=== PATIENT | male | born 1955 | race Two or more races ===

== ENCOUNTER 2024-06-19 09:11 | Outpatient (REF) | payer MEDICAID, SELFPAY ==
--- OUTSIDE RECORDS SUMMARY | 2024-06-19 10:09 | XMS_ITS | Encounter Summary ---
Author Organization [employer] Address [address] [facility] 7[address] [place] [address] Care Team Providers Care Childcare Center Director Name Role Phone Marjorie Key NP Primary Care Provider [phone] Reason for Visit * Reason Comments new patient Encounter Details Date Type Department Care Team ([facility] st Contact Info) Description 06/14/2024 2:00 PM EDT Office Visit [facility] [address] [place] [address] Marjorie Key NP [address] [place] [address] Hypertension, unspecified type (Primary Dx); Overweight (BMI 25.0-29.9); History of Helicobacter pylori infection; Encounter for health-related screening; History of colon polyps; Prostate cancer (CMS/HCC); Encounter for immunization Social History Tobacco Use Types Packs/Day Years Used Date Smoking Tobacco: Never Passive Smoke Exposure: Never Smokeless Tobacco: Never Tobacco Cessation:Counseling Given: Not Answered Alcohol Use Standard Drinks/Week Comments Never 0 (1 standard drink = 0.6 oz pur e alcohol) Alcohol Answer Date Recorded How often do you have a drink containing alcohol ? 0 06/14/2024 How many drinks containing a lcohol do you have on a typical day when you are drinking? 0 06/14/2024 How often do you have six or more drinks on one occasion? 0 06/14/2024 Depression Answer Date Recorded Patient Health Questionnaire-9 Score 10 06/14/2024 Patient Health Questionnaire-9 Score 10 06/14/2024 Last PHQ-9: Questionnaire Data Not on file 0 06/14/2024 Housing Stability Answer Date Recorded What is your housing situation today? I do not have housing (Staying with others, in a hotel, in a residential, living outside on the street, on a beach, in a car, or in a park 06/14/[address] you li ve. Do you have problems with any of the following? None of the above 06/14/2024 Food Insecurity Answer Date Recorded Within the past 12 months, y ou worried that your food would run out before you got money to buy more: Never True 2024 Within the past 12 months,th e food you bought just didn't last and you didn't have enough money to get more: Sometimes True 06/14/2024 Transportation Answer Date Recorded In the past 12 months, has l ack of transportation kept you from medical appts, meetings, work or from getting things needed for daily living? Yes, it has kept me from medical appointments or getting medications. 06/14/2024 Utilities Answer Date Recorded In the past 12 months, has t he electric, gas, oil or water company threatened to shut off services in your home? No 06/14/2024 Depression Answer Date Recorded Patient Health Questionnaire-2 Score 3 06/14/2024 Internet Access Answer Date Recorded Internet Access Q1 No 06/14/2024 Internet Access Q2 My internet/Wi-Fi ac cess is not consistent or reliable 06/14/2024 Sex and Gender Information Value Date Recorded Sex Assigned at Male 06/12/2024 3:44 PM EDT Legal Sex Male 3:43 PM EDT Gender Identity Male 06/13/2024 12:25 PM EDT Sexual Orientation Straight 06/13/2024 12 :25 PM EDT documented as of this encounter Last Filed Vital Signs Vital Sign Reading Time Taken Comments Blood Pressure 122/79 06/14/2024 2:12 PM EDT Pulse 75 06/14/2024 2:12 PM EDT Temperature 36.6 ??C (97.9 ??F) 06/14/2024 2:12 PM ED T Respiratory Rate 18 06/14/2024 2:12 PM EDT Oxygen Saturation 98% 06/14/2024 2:12 PM EDT Inhaled Oxygen Concentration - - Weight 97.1 kg (214 lb) 06/14/2024 2:12 PM EDT Height 180.3 cm (5' 11 ) 06/14/2024 2:12 PM EDT Body Mass Index 29.85 06/14/2024 2:12 PM EDT documented in this encounter Plan of Treatment Upcoming Encounters Date Type Department Care Team (Late st Contact Info) Description 07/17/2024 1:30 PM EDT Office Visit [facility] [address] [place] [address] Marjorie Key NP [address] [place], [place] [id number] Scheduled Orders Name Type Priority Associated Diagnoses Orde r Schedule Lipid Panel, Standard Lab Routine Overweight (BMI 25.0-29.9) Expected: 06/14/2024 (Approximate), Expires: 06/14/2025 Comprehensive Metabolic Panel Lab Routine Hypertension, unspecified type Expected: 06/14/2024 (Approximate), Expires: 06/14/2025 Hemoglobin A1c Lab Routine Overweight (BMI 25.0-29.9) Expected: 06/14/2024 (Approximate), Expires: 06/14/2025 Albumin, Random Urine W/Creatinine Lab Routine Hypertension, unspecified type Expected: 06/14/2024 (Approximate), Expires: 06/14/2025 Hepatitis C Antibody with Reflex to HCV, RNA, Quantitative, Real-Time PCR Lab Routine Encounter for health-related screening Expected: 06/14/2024 (Approximate), Expires: 06/14/2025 Hepatitis B Surface Antibody, Qualitative Lab Routine Encounter for health-related screening Expected: 06/14/2024 (Approximate), Expires: 06/14/2025 Hepatitis B Core Antibody, Total Lab Routine Encounter for health-related screening Expected: 06/14/2024 (Approximate), Expires: 06/14/2025 Hepatitis B surface antigen, EIA Lab Routine Encounter for health-related screening Expected: 06/14/2024 (Approximate), Expires: 06/14/2025 HIV-1/2 Antigen and Antibodies, Fourth Generation, with Reflexes Lab Routine Encounter for health-related screening Expected: 06/14/2024 (Approximate), Expires: 06/14/2025 Helicobacter pylori??Antigen, EIA, Stool Lab Routine History of Helicobacter pylori infection Expected: 06/14/2024, Expires: 06/14/2025 documented as of this encounter Visit Diagnoses Diagnosis Hypertension, unspecified type- Primary Overweight (BMI 25.0-29.9) Overweight History of Helicobacter pylori infection Encounter for health-related screening History of colon polyps Prostate cancer (CMS/HCC) Malignant neoplasm of prostate Encounter for immunization documented in this encounter Additional Health Concerns Assessment Noted Time PHQ-9 Depression Total Score: 10 025 3:02 PM EDT documented as of this encounter Care Teams Childcare Center Director Relationship Specialty Start Date End Date Marjorie Key NP [address] [place] [id number] PCP - General Family Medicine 06/14/24 documented as of this encounter
--- OUTSIDE RECORDS SUMMARY | 2024-06-19 10:09 | XMS_ITS | Encounter Summary ---
Author Organization [employer] Address [address] [facility] 7 [place] [address] Care Team Providers Care Burner Shaft Name Role Phone Marjorie Key NP Primary Care Provider [phone] Reason for Visit * Reason Onset Date Comments NEW PATIENT Request 06/12/2024 Encounter Details Date Type Department Care Team ([facility] st Contact Info) Description 06/12/2024 Telephone [facility] [address] [place] [address] Trey Schmitz MD [address] [place] [address] NEW PATIENT Request Social History Tobacco Use Types Packs/Day Years Used Date Smoking Tobacco: Never Assessed Alcohol Answer Date Recorded How often do [...] with others, in a hotel, in a senior living, living outside on the street, on a [...] PM EDT documented as of this encounter Miscellaneous Notes * Telephone Encounter - Isak Rodriguez - 06/12/2024 3:47 PM EDT TC from caller requesting NEW PATIENT visit . DX : HTN Cancer Anxiety Medical Concern: Vision issues Insurance name : [place] / Medicaid Pt states also has aetna but hasn't received card yet Location : [facility] Demographic information updated documented in this encounter Plan of Treatment Upcoming Encounters Date Type Department Care Team (Late st Contact Info) Description 07/17/2024 1:30 PM EDT Office Visit [facility] [address] [place] [address] Marjorie Key NP [address] [place] [address] documented as of this encounter Visit Diagnoses Not on filedocumented in this encounter Care Teams Burner Shaft Relationship Specialty Start Date End Date Marjorie Key NP [address] [place] [address] PCP - General Family Medicine 06/14/24 documented as of this encounter
--- OUTSIDE RECORDS SUMMARY | 2024-06-19 10:09 | XMS_ITS | Encounter Summary ---
Author Organization [employer] Address [address] [facility] [address] [place] [address] Care Team Providers Care Low Altitude Air Defense Gunner Name Role Phone Marjorie Key NP Primary Care Provider [phone] Encounter Details Date Type Department Care Team (Latest Contact Info) Description 06/14/2024 Travel Social History Tobacco Use Types Packs/Day Years Used Date Smoking Tobacco: Never Passive Smoke Exposure: Never Smokeless Tobacco: Never Alcohol Use Standard Drinks/Week Comments Never 0 [...] with others, in a hotel, in a halfway, living outside on the street, on a [...] PM EDT documented as of this encounter Plan of Treatment Upcoming Encounters Date Type Department Care Team (Late st Contact Info) Description 07/17/2024 1:30 PM EDT Office Visit [facility] [address] [place] [address] Marjorie Key NP [address] [place] [address] documented as of this encounter Visit Diagnoses Not on filedocumented in this encounter Additional Health Concerns Assessment Noted Time PHQ-9 Depression Total Score: 10 025 3:02 PM EDT documented as of this encounter Care Teams Low Altitude Air Defense Gunner Relationship Specialty Start Date End Date Marjorie Key NP [address] [place] [address] PCP - General Family Medicine 06/14/24 documented as of this encounter
--- OUTSIDE RECORDS SUMMARY | 2024-06-19 10:09 | XMS_ITS | Clinical Summary ---
Author Organization [employer] Address [address] [facility] 7t [place] [address] Care Team Providers Care Manager Culinary Name Role Phone Marjorie Key NP Primary Care Provider [phone] Allergies No known active allergies Medications fluticasone-elizabeth meterol (Advair) 115-21 MCG/ACT inhaler Inhale 2 puffs in the morning and at bedtime. Rinse mouth with water after use to reduce aftertaste and incidence of candidiasis. Do not swallow. Active albuterol 108 (90 Base) MCG/ACT inhaler Inhale. 1 to 2 puffs by mouth every 4 to 6 hours as needed Active azelastine (Astelin) 0.1 % nasal spray Administer 1 spray into each nostril 2 times daily. Use in each nostril as directed Active tamsulosin (Flomax) 0.4 MG 24 hr capsule Take 1 capsule by mouth Once per day. Active sertraline (Zoloft) 25 MG tablet Take 2 tablets by mouth Once per day. Active atorvastatin (Lipitor) 40 MG tablet Take 1 tablet by mouth Once per day. Active gabapentin (Neurontin) 400 MG capsule Take 1 capsule by mouth 2 times daily. Active losartan (Cozaar) 100 MG tablet Take 1 tablet by mouth Once per day. Active traZODone (Desyrel) 50 MG tablet Take 1 tablet by mouth at bedtime. Active montelukast (Singulair) 10 MG tablet Take 1 tablet by mouth Once per day. Active aspirin 81 MG EC tablet Take 1 tablet by mouth Once per day. Active Encounters Date Type Department Care Team Description 06/14/2024 2:00 PM EDT Office Visit [facility] [address] [place] [id number] Marjorie Key NP Hypertension, unspecified type (Primary Dx); Overweight (BMI 25.0-29.9); History of Helicobacter pylori infection; Encounter for health-related screening; History of colon polyps; Prostate cancer (CMS/HCC); Encounter for immunization 06/14/2024 Travel 06/13/2024 Telephone [facility] [address] [place] [address] Pierce Zhu [place] chartprep 06/12/2024 Telephone [facility] [address] [place] [address] Trey Schmitz MD NEW PATIENT Request from Last 3 Months Immunizations Name Administration Dates Next Due Tdap 06/14/2024 Family History Medical History Relation Name Comments Cancer Father Cancer Sister Relation Name Status Comments Father Mother Alive Sister Social History Tobacco Use Types Packs/Day Years [...] with others, in a hotel, in a longterm, living outside on the street, on a [...] Orientation Straight 06/13/2024 12 :25 PM EDT Last Filed Vital Signs Vital Sign Reading [...] Mass Index 29.85 06/14/2024 2:12 PM EDT Plan of Treatment Upcoming Encounters Date Type Department Care Team (Late st Contact Info) Description 07/17/2024 1:30 PM EDT Office Visit [facility] [address] [place] [address] Marjorie Key NP [address] [place], [place] [phone] Health Maintenance Due Date Last Done Comments CT Colonography 1955 Colonoscopy 1955 Colorectal Cancer Screening 1955 FIT DNA/Cologuard 1955 FIT 1955 FOBT 1955 Lipid Panel 1955 Sigmoidoscopy 1955 Hepatitis C Screening 1973 Pneumococcal Vaccine: 50+ Years (1 of 1 - PCV) 2005 Zoster Vaccines (1 of 2) 2005 COVID-19 Vaccine (1 - 2023-2 5 season) 2023 Influenza Vaccine (#1) 2023 Depression Monitoring 12/14/2024 06/14/2024 , 06/14/2024 Alcohol/Substance Use Screening 06/14/2025 06/14/2024 Depression Screening 06/14/2025 06/14/2024, 06/14/2024 SDOH Screening 06/14/2025 06/14/2024 Tobacco Screening 06/14/2025 06/14/2024 RSV Patients and Patients Aged 60 years or older (1 - 1-dose 75+ series) 2030 DTaP/Tdap/Td Vaccines (2 - T d or Tdap) 06/14/2034 06/14/2024 HIB Vaccines Aged Out No longer eligi ble based on patient's age to complete this topic HPV Vaccines Aged Out No longer eligi ble based on patient's age to complete this topic Hepatitis A Vaccines Aged Out No long er eligible based on patient's age to complete this topic Hepatitis B Vaccines Aged Out No long er eligible based on patient's age to complete this topic IPV Vaccines Aged Out No longer eligi ble based on patient's age to complete this topic Meningococcal Vaccine Aged Out No kay jailyn eligible based on patient's age to complete this topic RSV under 20 months Aged Out No longe r eligible based on patient's age to complete this topic Rotavirus Vaccines Aged Out No longer eligible based on patient's age to complete this topic Insurance [facility] Member Subscriber Plan / Payer (Ef fective 2024-Present) Name:Coy Hernandez Relation to Subscriber:Self Name:Coy Hernandez Payer ID:Not on file Group ID:Not on file Type:Medicaid Address: [facility] [id number] [place] [id number] [employer] Care Teams Manager Culinary Relationship Specialty Start Date End Date Marjorie Key NP [address] [place] [id number] PCP - General Family Medicine 06/14/24
[2024-06-19 11:31] LABS: Estimated Average Glucose 114 mg/dL; Hemoglobin A1C 127.7764 umol/L; Hemoglobin A1c % 5.6 % (<6.0); Total Hemoglobin (HGBA1C) 3345.9919 umol/L
[2024-06-19 11:48] LABS: Alanine Aminotransferase 24 U/L (0-40); Albumin Level 3.7 g/dL (3.5-5.0); Alkaline Phosphatase 40 U/L (39-117); Anion Gap 9 (12-20); Aspartate Amino Transferase 29 U/L (5-37); Bilirubin Total 0.5 mg/dL (0.0-1.0); Blood Urea Nitrogen 17 mg/dL (9-16); Carbon Dioxide 26 mmol/L (22-29); Chloride 107 mmol/L (96-108); Cholesterol 136 mg/dL (<200); Estimated Glomerular Filt Rate > 60; Glucose Random 93 mg/dL (60-115); HDL Cholesterol 47 mg/dL (>40); LDL Cholesterol Calculated 73 mg/dL (<100); Potassium 4.2 mmol/L (3.3-5.1); Sodium 138 mmol/L (135-145); Total Protein 6.7 g/dL (6.5-8.0); Triglycerides 80 mg/dL (<150)
[2024-06-19 12:03] LABS: HBS Num1 3.12 mIU/mL (0-7.99); Hepatitis B Core Antibody Nonreactive (Nonreactive); ~HepC Num1 0.13 S/CO (0.00-0.79); ~Hepatitis B Surface Antibody NONREACTIVE (Nonreactive)
[2024-06-19 12:04] LABS: HBsAGNum1 0.35 S/CO (0.00-0.99); HIV AB/AG Nonreactive (Nonreactive); HIV Num 1 0.07 S/CO (0.00-0.99); Hepatitis B Surface Antigen Negative (Negative); ~Hepatitis C Antibody Nonreactive (Nonreactive)
[2024-06-19 12:18] LABS: Creatinine Urine 104.67 mg/dL; Microalbum/Creatinine Ratio Ur 6.6 ug/mg cr (<30)
== END 2024-06-19 09:12 | disposition home or self-care (01) ==
LOC: HO.HHCL 09:11
PROVIDERS: Visit Provider Nurse Practitioner
DX: E66.3 Overweight (principal); I10 Essential (primary) hypertension; Z13.9 Encounter for screening, unspecified
CPT/HCPCS: 36415; 80053; 80061; 82043; 82570; 83036; 86704; 86706; 86803; 87340; 87389

== ENCOUNTER 2024-06-26 | Outpatient (REF) | payer MEDICAID, SELFPAY ==
--- OUTSIDE RECORDS SUMMARY | 2024-06-27 16:50 | XMS_ITS | Clinical Summary ---
Author Organization [employer] Address [address] [facility] [address] [place] [address] Care Team Providers Care Air Saw Operator Name Role Phone Marjorie Key NP Primary Care Provider [phone] Allergies No known active allergies Medications fluticasone-elizabeth [...] Description 06/14/2024 2:00 PM EDT Office Visit [facility] MED[facility]INE [address] [place] [phone] Marjorie Key NP Hypertension, unspecified type (Primary Dx); Overweight (BMI 25.0-29.9); History of Helicobacter pylori infection; Encounter for health-related screening; History of colon polyps; Prostate cancer (CMS/HCC); Encounter for immunization 06/14/2024 Travel 06/13/2024 Telephone [facility] MED[facility] [address] [place] [address] Pierce Zhu MA chartprep 06/12/2024 Telephone [facility] [address] [place] [address] Trey Schmitz MD NEW PATIENT Request from [...] with others, in a hotel, in a prison, living outside on the street, on a [...] Description 07/17/2024 1:30 PM EDT Office Visit [facility] [address] [place] [address] Marjorie Key NP [address] [place], [place] [phone] Health Maintenance Due Date Last Done Comments CT Colonography 1955 Colonoscopy 1955 Colorectal Cancer Screening 1955 FIT DNA/Cologuard 1955 FIT 1955 FOBT 1955 Sigmoidoscopy 1955 Pneumococcal Vaccine: 50+ Years (1 of 1 - PCV) 2005 Zoster Vaccines (1 of 2) 2005 COVID-19 Vaccine (1 - 2023-2 5 season) 2023 Influenza Vaccine (#1) 2023 Alcohol/Substance Use Screening 06/14/2025 06/14/2024 Depression Screening 06/14/2025 06/14/2024, 06/14/2024 SDOH Screening 06/14/2025 06/14/2024 Tobacco Screening 06/14/2025 06/14/2024 Lipid Panel 06/19/2029 06/19/2024 RSV Patients and Patients Aged 60 years or older (1 - 1-dose 75+ series) 2030 DTaP/Tdap/Td Vaccines (2 - T d or Tdap) 06/14/2034 06/14/2024 Hepatitis C Screening Completed 06/19/2024 HIB Vaccines Aged Out No longer eligi [...] on patient's age to complete this topic Procedures Procedure Name Priority Date/Time Associated Diagnosis Comments HIV 1/2 ANTIGEN/ANTIBODY, FOURTH GENERATION W/RFL Routine 06/19/2024 9:15 AM EDT Encounter for health-related screening HEPATITIS B SURFACE ANTIGEN, EIA Routine 06/19/2024 9:15 AM EDT Encounter for health-related screening HEPATITIS B CORE AB TOTAL Routine 06/19/2024 9:15 AM EDT Encounter for health-related screening HEPATITIS B SURFACE ANTIBODY, QUALITATIVE Routine 06/19/2024 9:15 AM EDT Encounter for health-related screening HEPATITIS C AB W/REFL TO HCV RNA, QN, PCR Routine 06/19/2024 9:15 AM EDT Encounter for health-related screening ALBUMIN, RANDOM URINE W/CREATININE Routine 06/19/2024 9:15 AM EDT Hypertension, unspecified type HEMOGLOBIN A1C Routine 06/19/2024 9:15 AM EDT Overweight (BMI 25.0-29.9) COMPREHENSIVE METABOLIC PANEL Routine 06/19/2024 9:15 AM EDT Hypertension, unspecified type LIPID PANEL, STANDARD Routine 06/19/2024 9:15 AM EDT Overweight (BMI 25.0-29.9) from Last 3 Months Results * Albumin, Random Urine W/Creatinine (06/19/2024 9:15 AM EDT) Creatinine, Urine 104.67 mg/dL [facility] Microalbumin Urine 7.0 mg/L [facility] Microalbum Creatinine Ratio Ur 6.6 <30 ug/mg cr [facility] Comment:Albumin/Creatinine R atio Reference Ranges: Normal: < 30 ug/mg creatinine Microalbuminuria: 30 - 300 ug/mg creatinineClinical Albuminuria: > 300 ug/mg creatinine Urine (Urine, Random) 06/19/2024 9:15 AM EDT 06/19/2024 11:34 AM EDT us Marjorie Key NP LAB URINE ORDERABLES Final Resu lt [facility] [address] [place] [phone] * Hepatitis C Antibody with Reflex to HCV, RNA, Quantitative, Real-Time PCR (06/19/2024 9:15 AM EDT) Hepatitis C Antibody Nonreactive Nonreactive [facility] Comment:Antibodies to HCV no t detected; does not exclude early acuteHCV infection. Blood Venous blood specimen / Unknown 06/19/2024 9:15 AM EDT 06/19/2024 11:13 AM EDT [facility] DRAFTING LAYOUT WORKER LAB BLOOD ORDERABLES Final Resu lt Performing Organization Address [facility]/ZIP Co de Phone Number [facility] [address] [place] [phone] * Hepatitis B surface antigen, EIA (06/19/2024 9:15 AM EDT) Hepatitis B Surface Ag Negative Negative [facility] Blood Venous blood specimen / Unknown 06/19/2024 9:15 AM EDT 06/19/2024 11:13 AM EDT Marjorie Clemente DRAFTING LAYOUT WORKER LAB BLOOD ORDERABLES Final Resu lt Performing Organization Address [facility] Co de Phone Number [facility] [address] [place] [phone] * Hepatitis B Core Antibody, Total (06/19/2024 9:15 AM EDT) Hepatitis B Core Antibody Nonreactive Nonreactive [facility] Blood Venous blood specimen / Unknown 06/19/2024 9:15 AM EDT 06/19/2024 11:13 AM EDT Marjorie Bryn DRAFTING LAYOUT WORKER LAB BLOOD ORDERABLES Final Resu lt Performing Organization Address [facility]/ZIP Co de Phone Number [facility] [address] [place] [phone] * HIV-1/2 Antigen and Antibodies, Fourth Generation, with Reflexes (06/19/2024 9:15 AM EDT) Pathologist [facility] HIV AB/AG Nonreactive Nonreactive [facility] Comment:HIV-1 p24 Ag and/or HIV-1/HIV-2 Ab not detected.A test result that is nonreactive does not exclude thepossibility of exposure to or infection with HIV-1 and/orHIV-2. Nonreactive results in this assay for individualswith prior exposure to HIV-1 and/or HIV-2 may be due toantigen and antibody levels that are below the limit ofdetection of this assay.The [employer] HIV Ag/Ab Combo assay result andsupplemental assay results should be interpreted inconjunction with the patient's clinical presentation,history and other laboratory results. If the results areinconsistent with clinical evidence, additional testing issuggested to confirm the result. Blood Venous blood specimen / Unknown 06/19/2024 9:15 AM EDT 06/19/2024 11:13 AM EDT [facility] LAB BLOOD ORDERABLES Final Resu lt Performing Organization Address City/[facility]/ZIP Co de Phone Number [facility] [address] [place] [phone] * Hepatitis B Surface Antibody, Qualitative (06/19/2024 9:15 AM EDT) Pathologist [facility] ~Hepatitis B Surface Antibody NONREACTIVE Nonreactive [facility] Comment:Nonreactive: < 8.00 mIU/mL Blood Venous blood specimen / Unknown 06/19/2024 9:15 AM EDT 06/19/2024 11:13 AM EDT [facility] LAB BLOOD ORDERABLES Final Resu lt Performing Organization Address City/[facility]/ZIP Co de Phone Number [facility] [address] [place] [phone] * Hemoglobin A1c (06/19/2024 9:15 AM EDT) Hemoglobin A1c 5.6 <6.0 % [facility] Comment:Hemoglobin A1C Refer ence Range Adults: 4.8 - 6.0 % Non diabetic: < 6.0 % Goal: < 7.0 %Additional Action Suggested: > 8.0 %Note: Hemoglobin A1c results are invalid for patients with abnormal amounts of HbF. Blood transfusions may impact the HbA1c concentration in the patient sample. Estimated Average Glucose 114 mg/dL [facility] Comment:eAG = Estimated ave rage glucose which is %A1C expressed asaverage glucose, using the formula of the O2Q-GlfbpknBkikjov Glucose study (ADAG), Diabetes Care, Vol.31,#8,2007 Blood Venous blood specimen / Unknown 06/19/2024 9:15 AM EDT 06/19/2024 11:16 AM EDT Marjorie Key DRAFTING LAYOUT WORKER LAB BLOOD ORDERABLES Final Resu lt [facility] [address] [place] [phone] * Lipid Panel, Standard (06/19/2024 9:15 AM EDT) Triglycerides 80 <150 mg/dL [facility] Comment:Desirable Triglyceri de: less than 150 mg/dLBorderline High Triglyceride 150-199 mg/dLHigh Triglyceride: 200-499 mg/dLVery High Triglyceride: greater than or equal to 5OO mg/dL Cholesterol 136 <200 mg/dL [facility] Comment:Desirable Cholestero l: less than 200 mg/dLBorderline High Cholesterol: 200-239 mg/dLHigh Cholesterol: greater than 239 mg/dL LDL Cholesterol Calculated 73 <100 mg/dL [facility] Comment:Desirable LDL: less than 100 mg/dLNear Optimal/Above Optimal LDL: 110- 129 mg/dLBorderline High LDL: 130-159 mg/dLHigh LDL: 160-189 mg/dLVery High LDL: greater than or equal to 190 mg/dL HDL Cholesterol 47 >40 mg/dL [facility] Comment:Desirable HDL: great er than 40 mg/dL Note: This HDL assay may give artificially low results in patients with liver disease. Blood Venous blood specimen / Unknown 06/19/2024 9:15 AM EDT 06/19/2024 11:13 AM EDT us Marjorie Brynwillam DRAFTING LAYOUT WORKER LAB BLOOD ORDERABLES Final Resu lt [facility] [address] [place] [phone] * (ABNORMAL) Comprehensive Metabolic Panel (06/19/2024 9:15 AM EDT) Sodium 138 135 - 145 mmol/L [facility] Potassium 4.2 3.3 - 5.1 mmol/L [facility] Chloride 107 96 - 108 mmol/L [facility] Carbon Dioxide 26 22 - 29 mmol/L [facility] Anion Gap 9(L) 12 - 20 [facility] Urea Nitrogen (BUN) 17(H) 9 - 16 mg/dL [facility] Creatinine, Serum 0.80 0.5 - 1.4 mg/dL [facility] Estimated Glomerular Filt Rate >60 [facility] Comment:Chronic Kidney Disea se: Estimated GFR < 60 mL/min/[id number] Kidney Disease: Estimated GFR < 15 mL/min/1.73m2 Glucose 93 60 - 115 mg/dL [facility] Calcium 9.0 8.4 - 10.2 mg/dL [facility] Bilirubin, Total 0.5 0.0 - 1.0 mg/dL [facility] Aspartate Amino Transferase 29 5 - 37 U/L [facility] Alanine Aminotransferase 24 0 - 40 U/L [facility] Total Protein 6.7 6.5 - 8.0 g/dL [facility] Albumin Level 3.7 3.5 - 5.0 g/dL [facility] Alkaline Phosphatase 40 39 - 117 U/L [facility] Blood Venous blood specimen / Unknown 06/19/2024 9:15 AM EDT 06/19/2024 11:13 AM EDT Marjorie Key DRAFTING LAYOUT WORKER LAB BLOOD ORDERABLES Final Resu lt [facility] [address] [place] [phone] from Last 3 Months Insurance [facility] Care Teams Air Saw Operator Relationship Specialty Start Date End Date Marjorie Key NP [address] [place] [phone] PCP - General Family Medicine 06/14/24
--- OUTSIDE RECORDS SUMMARY | 2024-06-27 16:50 | XMS_ITS | Encounter Summary ---
Author Organization [employer] Address [address] [facility] 7 [place] [address] Care Team Providers Care Computer Forensics Investigator Name Role Phone Marjorie Key NP Primary Care Provider [phone] Reason for Visit * Reason Onset Date Comments NEW PATIENT Request 06/12/2024 Encounter Details Date Type Department Care Team ([facility] st Contact Info) Description 06/12/2024 Telephone [facility] MEDICINE [address] [place] [address] Trey Schmitz MD [address] [place] [address] NEW PATIENT Request Social History Tobacco Use [...] with others, in a hotel, in a correction, living outside on the street, on a [...] but hasn't received card yet Location : [facility] Demographic information updated documented in this encounter Plan of Treatment Upcoming Encounters Date Type Department Care Team (Late st Contact Info) Description 07/17/2024 1:30 PM EDT Office Visit [facility] MEDICINE [address] [place] [address] Marjorie Key NP [address] [place] [address] documented as of this encounter Visit Diagnoses Not on filedocumented in this encounter Care Teams Computer Forensics Investigator Relationship Specialty Start Date End Date Marjorie Key NP [address] [place] [address] PCP - General Family Medicine 06/14/24 documented as of this encounter
== END 2024-06-26 00:01 | disposition home or self-care (01) ==
LOC: HO.HHCLNP
PROVIDERS: Visit Provider Nurse Practitioner
DX: Z86.19 Personal history of other infectious and parasitic diseases (principal)
CPT/HCPCS: 87338

== ENCOUNTER 2024-10-25 14:52 | Outpatient (AMB) | payer MEDICARE, SELFPAY ==
--- NOTE | 2024-10-25 15:40 | A.OFFVIS_ITS ---
Intake Visit Reasons: Prostate cancer screening Intake Note: New Patient is present for Sales Associate screening Urology Rx:Tamsulosin Blood Thinners:none Imaging completed: none Rn Embedded Required: No Accompanied by: Self / Same As Patient HPI Comments Details: Coy is a [place]ian-speaking male. He is a patient of [facility] Dr. Key. He is seen for the following urologic conditions - prostate cancer [place]ian translation provided by [facility] sales Per the patient he was diagnosed with prostate cancer in [place] 4 years ago Therapy was injections Sounds consistent with GnRH administration Plan check PSA now and three-month Patient informed he should get copy of previous urology records from [place]. It does not matter if they are in [place]ian. This would provide continuity of care. Review of Systems Const Denies chills and Denies fever(s) Card Reports no additional complaints and Denies syncope Resp Denies cough GI Denies abdominal pain and Denies heartburn Reports as per HPI and Denies change in libido Neuro Denies syncope Psych Denies change in libido Endo Denies change in libido Physical Exam Const General: cooperative, healthy appearing, comfortable and no acute distress Orientation/consciousness: patient oriented x3 HEENT Face and sinus: Yes normal facial exam Mouth: moist mucous membranes Neck Neck: Yes normal visual inspection, Yes full ROM and Yes trachea midline Chest Chest palpation & inspection: normal inspection of the chest Resp Effort & Inspection: normal respiratory effort, able to speak in complete sentences and no respiratory distress GI Inspection: Yes normal to inspection Back/Spine/Pelvis Cervical Spine: normal cervical lordosis Thoracic/Lumbar Spine: thoracic and lumbar spine normal to inspection Skin General skin exam: no rashes or lesions noted Neuro General: patient oriented x3, gait normal, tone normal and moves all extremities Extrem General: Yes normal to inspection and Yes capillary refill normal Results AMB Urinalysis, Automated UA Leukoctes 0 Sarah/uL Last Edit by KIERAN Ferrari on 10/25/24 15:55 UA Nitrite Negative Last Edit by KIERAN Ferrari on 10/25/24 15:55 UA Urobilinogen 0.2 mg/dL Last Edit by KIERAN Ferrari on 10/25/24 15:5 5 UA Protein 0 mg/dL Last Edit by KIERAN Ferrari on 10/25/24 15:55 UA pH 6.0 Last Edit by KIERAN Ferrari on 10/25/24 15:55 UA Blood 0 Timothy/uL Last Edit by KIERAN Ferrari on 10/25/24 15:55 UA Specific Cornell 1.015 Last Edit by KIERAN Ferrari on 10/25/24 15: 55 UA Ketone Negative Last Edit by KIERAN Ferrari on 10/25/24 15:55 UA Bilirubin 0 mg/dL Last Edit by KIERAN Ferrari on 10/25/24 15:55 UA Glucose 0 mg/dL Last Edit by KIERAN Ferrari on 10/25/24 15:55 Results Reviewed Results Reviewed: Laboratory Last Values Urine pH (Auto) 6.0 10/25/24 15:54 Specific Cornell (Auto) 1.015 10/25/24 15:54 Urine Protein (Auto) 0 mg/dL 10/25/24 15:54 Glucose (UA)(Auto) 0 mg/dL 10/25/24 15:54 Urine Ketones (Auto) Negative 10/25/24 15:54 Urine Blood (Auto) 0 Timothy/uL 10/25/24 15:54 Urine Nitrite (Auto) Negative 10/25/24 15:54 Urine Bilirubin (Auto) 0 mg/dL 10/25/24 15:54 Urine Urobilinogen (Auto) 0.2 mg/dL 10/25/24 15:54 Leukocyte Esterase (Auto) 0 Sarah/uL 10/25/24 15:54 Assessment & Plan Assessment & Plan (1) Hormone sensitive prostate cancer: Code(s): C61 - Malignant neoplasm of prostate; Z19.1 - Hormone sensitive malignancy status Category: Medical Plan PSA now Repeat in three-month Patient to obtain records from [place] Orders: Orders Prostate Specific Antigen 3 Months C61 - Malignant neoplasm of prostate, Z19.1 - Hormone sensitive malignancy status AMB Urinalysis Automated Today Z13.9 - Encounter for screening, unspecified PSA,Total (Free>4and<10) Today C61 - Malignant neoplasm of prostate, Z19.1 - Hormone sensitive malignancy status Patient Instructions: This note is constructed using voice recognition software. While every effort has been made to ensure accuracy manager bank errors may have been included. Imaging studies, laboratory and physical exam results were discussed and reviewed in detail. No major barriers to patient understanding were identified. An opportunity to ask questions regarding the treatment plan was provided. All questions were answered. The patient expressed understanding and agreement with the above treatment plan. The patient is aware they should contact our office by phone for worsening of their current condition or the appearance of new urologic symptoms. Compliance is encouraged with any medications and followup testing that is ordered. It is a privilege to participate in the urologic care of your patient. If you have any questions or concerns regarding treatment for the above conditions, or other urologic issues, please do not hesitate to contact me. The office telephone contact is [phone]. Sincerely, Dr Ton Franco MD, [facility] - Urology Compassionate Specialist Care for the Genitourinary System Coding Level of Care Code New Pt Level 4 (71133) Diagnoses Hormone sensitive prostate cancer C61; Z19.1
--- OUTSIDE RECORDS SUMMARY | 2024-10-25 15:50 | XMS_ITS | Encounter Summary ---
Author Organization [employer] Address [address] [place] [address] [address] [address] Care Team Providers Care Payroll Clerk Name Role Phone Marjorie Key NP Primary Care Provider Reason for Visit * Reason Onset Date Comments Nurse Triage 09/21/2024 Encounter Details Date Type Department Care Team ([facility] st Contact Info) Description 09/21/2024 Telephone [facility] MEDICINE [address] [place] [address] Marjorie Key NP [address] [place] [address] Nurse Triage Social History Tobacco Use Types Packs/Day Years [...] encounter Miscellaneous Notes * Telephone Encounter - Azul RawlsIVELISSE bowen - 09/21/2024 12:06 PM EDT Triage calls placed to reach patient with S mounter flutes and piccolos services as documented. Now answered. Patient reports that he is seeking refills on Gabapentin and Tamulosin. Refill request previously processed prior to Triage call. Patient requesting information in regards to recent referrals as he has not heard about scheduled appts. All information of referrals relayed to patient with location and phone contact numbers for those offices. Referral numbers provided. Patient with ongoing left leg pain. Had been told he would have appt with PCP and has not had his follow up from appt. In July. Team tasked to follow with appt with PCP unable to schedule with Triage protocol. Reviewed with patienthome care recommendations and reasons to call back. Pt verbalized understanding and agrees. Multiple (2) protocols were used on this call. Disposition for Call: Home Care Protocol Used: Leg Pain (Adult) Protocol-Based Disposition: See in Office or Video Visit within 2 Weeks Override (Final) Disposition: Home Care Override Reason: Prescription issue Video visit not offered Positive Triage Question: * Leg pain or muscle cramp is a chronic symptom (recurrent or ongoing AND lasting > 4 weeks) * All higher-acuity triage questions were negative Care Advice Discussed: * Reasons To Call Back - Signs of infection occur (such as spreading redness, warmth, fever) - You become worse Protocol Used: Medication Question Call (Adult) Protocol-Based Disposition: Home Care Positive Triage Question: * Prescription prescribed recently is not at pharmacy and triager has access to patient's EMR and prescription is recorded in the EMR * All higher-acuity triage questions were negative * Telephone Encounter - Maggie Urias - 09/21/2024 11:54 AM EDT Symptoms: Knee Pain - Not From Injury, Back Pain - Not From Injury, Arm Pain - Not From Injury, Shoulder Pain - Not From Injury Outcome: Schedule an urgent appointment (within 1 hour) or talk to a nurse or provider soon Reason: Severe pain now The caller accepted this outcome. Pt stated he receive gabapetin but pt feel like does nothing Contact pt at [phone] Need mounter flutes and piccolos documented in this encounter Plan of Treatment Upcoming Encounters Date Type Department Care Team (Late st Contact Info) Description 03/15/2025 3:00 PM EST Office Visit [facility] OPTOMETRY [address] [place] [address] Shirin Hodge, OD [address] [place] [address] documented as of this encounter Visit Diagnoses Not on filedocumented in this encounter Additional Health Concerns Assessment Noted Time PHQ-9 Depression Total Score: 10 025 3:02 PM EDT documented as of this encounter Care Teams Payroll Clerk Relationship Specialty Start Date End Date Marjroie Key NP [address] [place] [address] PCP - General Family Medicine 06/14/24 documented as of this encounter
== END 2024-10-25 16:31 | disposition home or self-care (01) ==
LOC: HO.HUSH 14:53
PROVIDERS: PCP Nurse Practitioner; Visit Provider Urology
DX: C61 Malignant neoplasm of prostate (principal); Z19.1 Hormone sensitive malignancy status; Z13.9 Encounter for screening, unspecified
CPT/HCPCS: 99204

== ENCOUNTER → 2024-10-25 14:52 | Outpatient (BNVA) | payer MEDICARE, SELFPAY | PROVIDERS: PCP Nurse Practitioner; Visit Provider Urology | DX: C61 Malignant neoplasm of prostate (principal); Z19.1 Hormone sensitive malignancy status | CPT/HCPCS: 81003; 99202 ==

== ENCOUNTER 2024-10-27 11:02 | Outpatient (REF) | payer MEDICARE, SELFPAY ==
--- OUTSIDE RECORDS SUMMARY | 2024-10-27 11:08 | XMS_ITS | Encounter Summary ---
Author Organization [employer] Address [address] [place] [address] [address], [place] [address] Care Team Providers Care Owner Operator Tanker Truck Driver Name Role Phone Marjorie Key NP Primary Care Provider [phone] Reason for Visit * Reason Onset Date Comments Nurse Triage 09/21/2024 Encounter Details Date Type Department Care Team ([facility] st Contact Info) Description 09/21/2024 Telephone [facility] MEDICINE [address] [place] [address] Marjorie Key NP [address] [place] [address] Nurse Triage Social History Tobacco Use Types [...] with others, in a hotel, in a custodial, living outside on the street, on a [...] calls placed to reach patient with S lead systems engineer services as documented. Now answered. Patient reports [...] feel like does nothing Contact pt at [phone] Need lead systems engineer documented in this encounter Plan of Treatment Upcoming Encounters Date Type Department Care Team (Late st Contact Info) Description 03/15/2025 3:00 PM EST Office Visit [facility] OPTOMETRY [address] [place] [address] Shirin Hodge, OD [address] [place] [address] documented as of this encounter Visit Diagnoses Not on filedocumented in this encounter Additional Health Concerns Assessment Noted Time PHQ-9 Depression Total Score: 10 025 3:02 PM EDT documented as of this encounter Care Teams Owner Operator Tanker Truck Driver Relationship Specialty Start Date End Date Marjorie Key NP [address] [place] [address] PCP - General Family Medicine 06/14/24 documented as of this encounter
[2024-10-27 17:04] LABS: PSA,Total (Free>4and<10) 5.65 ng/mL (0.00-4.00)
[2024-10-30 12:59] LABS: Free Prostate Spec Ag 0.6 ng/mL; Percent Free Prostate Spec Ag 13 % (calc) (>25)
== END 2024-10-27 11:03 | disposition home or self-care (01) ==
LOC: HO.CHCLDS 11:02
PROVIDERS: Visit Provider Urology
DX: C61 Malignant neoplasm of prostate (principal); Z19.1 Hormone sensitive malignancy status; Z12.5 Encounter for screening for malignant neoplasm of prostate
CPT/HCPCS: 36415; 84153; 84154

== ENCOUNTER 2025-01-15 15:29 | Outpatient (REF) | payer MEDICARE, SELFPAY ==
--- OUTSIDE RECORDS SUMMARY | 2025-01-15 14:30 | XMS_ITS | Encounter Summary ---
Author Organization [employer] Address [address] [place] [address] Care Team Providers Care Change Control Coordinator Name Role Phone Marjorie Key NP Primary Care Provider [phone] Reason for Visit * Reason Comments Follow-up Encounter Details Date Type Department Care Team ([facility] st Contact Info) Description 01/15/2025 2:30 PM EST Office Visit [facility] [address] [place] [address] Marjorie Key NP [address] [place] [address] Memory loss, short term (Primary Dx); Sleep disturbance; Muscle cramping Social History Tobacco Use Types Packs/Day Years [...] Date Recorded Patient Health Questionnaire-9 Score 10 12/06/2024 Patient Health Questionnaire-9 Score 10 12/06/2024 Last PHQ-9: Questionnaire Data Not on file 1 Housing Stability Answer Date Recorded What is [...] Answer Date Recorded Patient Health Questionnaire-2 Score 2 12/06/2024 Internet Access Answer Date Recorded Internet Access [...] Sign Reading Time Taken Comments Blood Pressure 120/86 01/15/2025 2:47 PM EST Pulse 64 01/15/2025 2:47 PM EST Temperature 36.7 C (98.1 F) 01/15/2025 2:47 PM EST Respiratory Rate 16 01/15/2025 2:47 PM EST Oxygen Saturation 97% 01/15/2025 2:47 PM EST Inhaled Oxygen Concentration - - Weight 91.5 kg (201 lb 12.8 oz) 01/15/2025 2:47 PM EST Height 180.3 cm (5' 11 ) 01/15/2025 2:47 PM EST Body Mass Index 28.15 01/15/2025 2:47 PM EST documented in this encounter Plan of Treatment Upcoming Encounters Date Type Department Care Team (Late st Contact Info) Description 01/16/2025 2:00 PM EST Medication Management [facility] [address] [place] [address] Juliana Stone, PharmD [address] [place] [address] 03/15/2025 3:00 PM EST Office Visit [facility] OPT[facility]RY [address] [place] [address] Naveen, Shirin, OD [address] [place] [address] Scheduled Orders Name Type Priority Associated Diagnoses Orde r Schedule Vitamin B12/Folate, Serum Panel Lab Routine Memory loss, short term Expected: 01/15/2025, Expires: 01/15/2026 TSH W/Reflex to FT4 Lab Routine Memory loss, short term Expected: 01/15/2025 (Approximate), Expires: 01/15/2026 Magnesium Lab Routine Muscle cramping Expected: 01/15/2025, Expires: 01/15/2026 documented as of this encounter Procedures Procedure Name Priority Date/Time Associated Diagnosis Comments CBC WITH AUTO DIFFERENTIAL Routine 01/15/2025 3:32 PM EST Memory loss, short term documented in this encounter Results * (ABNORMAL) CBC auto differential (01/15/2025 3:32 PM EST) White Blood Count 8.7 4.8 - 10.8 X10*3/uL [facility] Red Blood Count 4.33(L) 4.60 - 5.80 X10*6/uL [facility] Hemoglobin 13.3(L) 14.0 - 18.0 g/dl [facility] Hematocrit 39.1(L) 42.0 - 52.0 % [facility] Mean Corpuscular Volume 90.3 80.0 - 98.0 fL [facility] Mean Corpuscular Hemoglobin 30.7 27.0 - 33.0 pg [facility] Mean Corpuscular HGB Conc 34.0 31.0 - 36.0 g/dl [facility] Red Cell Distribution Width 14.6 11.0 - 16.0 % [facility] Platelet Count 243 160 - 400 X10*3/uL [facility] Mean Platelet Volume 10.2 9.4 - 12.4 fL [facility] Neutrophils Percent Auto 59.5 45 - 73 % [facility] Imm Gran Pct Auto 0.3 0.0 - 0.4 % [facility] Lymphocytes Percent Auto 27.6 20 - 40 % [facility] Monocytes Percent Auto 9.2 2 - 11 % [facility] Eosinophils Percent Auto 2.6 0 - 4 % [facility] Basophils Percent Auto 0.8 0 - 2 % [facility] NRBC Pct Auto 0.0 0.0 - 0.2 /100WBC [facility] Neutrophils Absolute Auto 5.2 2.0 - 8.3 x10*3/uL [facility] Imm Gran Abs Auto 0.03 0.00 - 0.03 X10*3/uL [facility] Lymphocytes Absolute Auto 2.4 1.2 - 4.9 X10*3/uL [facility] Monocytes Absolute Auto 0.8 0.1 - 1.2 X10*3/uL [facility] Eosinophils Absolute Auto 0.2 0.0 - 0.4 X10*3/uL [facility] Basophils Absolute Auto 0.1 0.0 - 0.2 X10*3/uL [facility] NRBC Abs Auto 0.000 0.0 - 0.012 X10*3/uL [facility] Blood Venous blood specimen / Unknown 01/15/2025 3:32 PM EST 01/15/2025 3:54 PM EST us Marjorie Key NP LAB BLOOD ORDERABLES Final Resu lt [facility] [address] [place] [address] [phone] documented in this encounter Visit Diagnoses Diagnosis Memory loss, short term- Primary Memory loss Sleep disturbance Unspecified sleep disturbance Muscle cramping documented in this encounter Additional Health Concerns Assessment Noted Time PHQ-9 Depression Total Score: 10 025 10:03 AM EDT documented as of this encounter Care Teams Change Control Coordinator Relationship Specialty Start Date End Date Marjorie Key NP [address] [place] [address] PCP - General Family Medicine 06/14/24 documented as of this encounter
[2025-01-15 15:59] LABS: MANUAL DIFF FLAG NO
[2025-01-15 16:09] LABS: Hematocrit 39.1 % (42.0-52.0); Hemoglobin 13.3 g/dl (14.0-18.0); Imm Gran Abs Auto 0.03 X10*3/uL (0.00-0.03); Imm Gran Pct Auto 0.3 % (0.0-0.4); Lymphocytes Absolute Auto 2.4 X10*3/uL (1.2-4.9); Mean Corpuscular HGB Conc 34.0 g/dl (31.0-36.0); Mean Corpuscular Hemoglobin 30.7 pg (27.0-33.0); Mean Corpuscular Volume 90.3 fL (80.0-98.0); NRBC Abs Auto 0.000 X10*3/uL (0.0-0.012); NRBC Pct Auto 0.0 /100WBC (0.0-0.2); Platelet Count 243 X10*3/uL (160-400); Red Blood Count 4.33 X10*6/uL (4.60-5.80); White Blood Count 8.7 X10*3/uL (4.8-10.8)
--- OUTSIDE RECORDS SUMMARY | 2025-01-15 17:34 | XMS_ITS | Clinical Summary ---
Author Organization [email or web address] Address [address] [place] [address] [address] [place] [address] Care Team Providers Care Testing Projects Administrator Name Role Phone Marjorie Key NP Primary Care Provider Allergies No known active allergies Medications * This document contains information received from the source organization and may not represent a complete record from that organization. albuterol 108 (90 Base) MCG/ACT inhaler 1 to 2 puffs by mouth every 4 to 6 hours as needed 18 g 1 07/14/19 25 Active cetirizine (ZyrTEC) 5 MG tablet Take 1 tablet (5 mg) by mouth Once per day. 30 tablet 2 07/18/19 25 Active atorvastatin (Lipitor) 40 MG tabletIndicati ons:Medication refill Take 1 tablet (40 mg) by mouth Once per day. 90 tablet 1 09/23/19 25 026 Active losartan (Cozaar) 100 MG tabletIndicati ons:Medication refill Take 1 tablet (100 mg) by mouth Once per day. 90 tablet 1 09/23/19 25 026 Active sertraline (Zoloft) 50 MG tabletIndicati ons:Medication refill Take 1 tablet (50 mg) by mouth Once per day. 90 tablet 1 09/23/19 25 026 Active montelukast (Singulair) 10 MG tablet TAKE 1 TABLET (10 MG) BY MOUTH ONCE PER DAY. 90 tablet 10/24/19 25 Active fluticasone-sa lmeterol (Advair) 115-21 MCG/ACT inhaler INHALE 2 PUFFS IN THE MORNING AND AT BEDTIME. RINSE MOUTH WITH WATER AFTER USE TO REDUCE AFTERTASTE AND INCIDENCE OF CANDIDIASIS. DO NOT SWALLOW. 12 g 1 11/24/19 25 Active sertraline (Zoloft) 25 MG tabletIndicati ons:Depression , unspecified depression type Take 1 tablet (25 mg) by mouth Once per day. Take with 50 mg 30 tablet 2 12/07/19 25 025 Active tamsulosin (Flomax) 0.4 MG 24 hr capsuleIndicat ions:History of BPH Take 1 capsule (0.4 mg) by mouth Once per day. 90 capsule 1 12/07/19 25 026 Active fluticasone (Flonase) 50 MCG/ACT nasal sprayIndicatio ns:Post-nasal drip Administer 1 spray into each nostril Once per day. Shake gently. Before first use, prime pump. After use, clean tip and replace cap. 16 g 2 12/07/19 25 026 Active traZODone (Desyrel) 50 MG tablet Take 1 tablet (50 mg) by mouth at bedtime. 30 tablet 1 01/16/20 25 Active gabapentin (Neurontin) 400 MG capsule Take 1 capsule (400 mg) by mouth 2 times daily. 60 capsule 1 01/16/20 25 Active traZODone (Desyrel) 50 MG tablet TAKE 1 TABLET BY MOUTH AT BEDTIME 30 tablet 1 09/05/19 25 025 Discontinued(Re order (will not trigger notification to Pharmacy)) aspirin (Aspirin Low Dose) 81 MG EC tabletIndicati ons:Medication refill Take 1 tablet (81 mg) by mouth Once per day. 90 tablet 09/23/19 25 025 gabapentin (Neurontin) 400 MG capsule Take 1 capsule (400 mg) by mouth 2 times daily. 60 capsule 1 12/07/19 25 025 Discontinued(Re order (will not trigger notification to Pharmacy)) Active Problems Problem Noted Date Diagnosed Date Depression 12/06/2024 Assessment & Plan (12/06/2024 7:06 PM EDT): -currently takes sertraline 50 mg. Dose increased to 75 mg daily -recommend attending senior center/engaging in adult in day program -discussed benefits of healthy diet and exercise -coping mechanisms offered - clinician to call and assist with establishing with therapist Anxiety 12/06/2024 Assessment & Plan (12/06/2024 7:06 PM EDT): -as above Overweight (BMI 25.0-29.9) 09/12/2024 Assessment & Plan (09/12/2024 11:17 PM EDT): Dietary Recommendations: Fruits, vegetables, whole grains, protein foods, and fat-free or low-fat dairy products are healthy choices. Eat different types of protein foods in your diet. This can include seafood, lean meats, poultry, beans, peas, lentils, nuts, seeds, soy products, and eggs. Limit foods and beverages higher in added sugars, saturated fat, and sodium. Exercise Recommendations: At least 150 minutes of moderate-intensity physical activity per week, or an equivalent combination of moderate- and vigorous-intensity activity Hypertension 09/12/2024 Assessment & Plan (09/12/2024 11:17 PM EDT): -BP stable on losartan 100 mg -monitoring labs ordered -lifestyle modifications reviewed Encounters * This document contains information received from the source organization and may not represent a complete record from that organization. Date Type Department Care Team Description 01/15/2025 2:30 PM EST Office Visit [address] [address] Marjorie Key NP Memory loss, short term (Primary Dx); Sleep disturbance; Muscle cramping 01/15/2025 Travel 01/12/[address] [place] [address] Arsh Rowley MA chart prep 12/28/2024 2:00 PM EDT Clinical Support [address] [place] [address] Vy Alejandra RN Forgetfulness 12/28/2024 Travel 12/21/[address] [address] Marjorie Key NP 12/07/2024 Orders Only [address] [place] [address] Marjorie Key NP Primary hypertension (Primary Dx) 12/07/[address] [address] Marjorie Key NP 12/07/[address] [address] Vy Alejandra RN 12/06/2024 10:00 AM EDT Office Visit [address] [address] Marjorie Key NP Physical exam, annual (Primary Dx); Depression, unspecified depression type; Encounter for immunization; Forgetfulness; Anxiety; Post-nasal drip; History of BPH 12/06/[address] [address] Marjorie Key NP Fax over notes 12/06/2024 Travel 11/29/2024 Patient Outreach [facility] [address] [place] [address] Marjorie Key NP Pre-visit Planning (SDOH was already completed ) 11/21/2024 Refill [facility] [address] [place] [address] Marjorie Key NP 11/07/[address] [address] Marjorie Key NP Appointment Request 10/23/2024 Refill [facility] [address] [place] [address] Jeevan Hodges MD 10/22/2024 Refill [facility] [address] [place] [address] Marjorie Key NP from Last 3 Months Immunizations Immunization Administration Dates Next Due Hep B, adult 12/06/2024,07/17/2024 Influenza, High Dose Seasonal, Preservative Free 12/06/2024 Pneumococcal Conjugate PCV 20 07/17/2024 Tdap 06/14/2024 Family History Medical History Relation [...] with others, in a hotel, in a penitentiary, living outside on the street, on a [...] the past 12 months, has t he [employer], gas, oil or water [email or web address] threatened to shut off services in your [...] Mass Index 28.15 01/15/2025 2:47 PM EST Plan of Treatment Upcoming Encounters Date Type Department Care Team (Late st Contact Info) Description 01/16/2025 2:00 PM EST Medication Management [facility] [address] [place] [address] Juliana Stone, PharmD [address] [place] [address] 03/15/2025 3:00 PM EST Office Visit [facility] [address] [place] [address] Naveen, Shirin, OD [address] [place] [address] Health Maintenance Due Date Last Done Comments CT Colonography 1955 Colonoscopy 1955 Colorectal Cancer Screening 1955 FIT DNA/Cologuard 1955 FIT 1955 FOBT 1955 Sigmoidoscopy 1955 Zoster Vaccines (1 of 2) 2005 COVID-19 Vaccine (1 - 2023-2 5 season) 2024 Hepatitis B Vaccines (3 of 3 - 19+ 3-dose series) 01/31/2025 12/06/2024, 07/17/2024 Depression Monitoring 06/06/2025 12/06/2024 , 12/06/2024 Alcohol/Substance Use Screening 06/14/2025 06/14/2024 SDOH Screening 06/14/2025 06/14/2024 Tobacco Screening 01/15/2026 01/15/2025 Lipid Panel 06/19/2029 06/19/2024 RSV Patients and Patients Aged 60 years or older (1 - 1-dose 75+ series) 2030 DTaP/Tdap/Td Vaccines (2 - T d or Tdap) 06/14/2034 06/14/2024 Hepatitis C Screening Completed 06/19/2024 Pneumococcal Vaccine: 50+ Years Completed 07/17/2024 Influenza Vaccine Completed 12/06/2024 HIB Vaccines Aged Out No longer eligi [...] patient's age to complete this topic Meningococcal B Vaccine Aged Out No l onger eligible based on patient's age to complete [...] 3:32 PM EST Memory loss, short term HEPATITIS C AB W/REFL TO HCV RNA, QN, PCR Routine 06/19/2024 9:15 AM EDT Encounter for health-related screening LIPID PANEL, STANDARD Routine 06/19/2024 9:15 AM EDT Overweight (BMI 25.0-29.9) from Last 3 Months or Most Recently Relevant to Health Maintenance Results * (ABNORMAL) CBC auto differential (01/15/2025 3:32 PM EST) White Blood Count 8.7 4.8 - 10.8 X10*3/uL [facility] Red Blood Count 4.33(L) 4.60 - 5.80 X10*6/uL [facility] Hemoglobin 13.3(L) 14.0 - 18.0 g/dl [facility] Hematocrit 39.1(L) 42.0 - 52.0 % [facility] Mean Corpuscular Volume 90.3 80.0 - 98.0 fL [facility] Mean Corpuscular Hemoglobin 30.7 27.0 - 33.0 pg [facility] Mean Corpuscular HGB Conc 34.0 31.0 - 36.0 g/dl [facility] Red Cell Distribution Width 14.6 11.0 - 16.0 % [facility] Platelet Count 243 160 - 400 X10*3/uL [facility] Mean Platelet Volume 10.2 9.4 - 12.4 fL [facility] Neutrophils Percent Auto 59.5 45 - 73 % [facility] Imm Gran Pct Auto 0.3 0.0 - 0.4 % [facility] Lymphocytes Percent Auto 27.6 20 - 40 % [facility] Monocytes Percent Auto 9.2 2 - 11 % [facility] Eosinophils Percent Auto 2.6 0 - 4 % [facility] Basophils Percent Auto 0.8 0 - 2 % [facility] NRBC Pct Auto 0.0 0.0 - 0.2 /100WBC [facility] Neutrophils Absolute Auto 5.2 2.0 - 8.3 x10*3/uL [facility] Imm Gran Abs Auto 0.03 0.00 - 0.03 X10*3/uL [facility] Lymphocytes Absolute Auto 2.4 1.2 - 4.9 X10*3/uL [facility] Monocytes Absolute Auto 0.8 0.1 - 1.2 X10*3/uL [facility] Eosinophils Absolute Auto 0.2 0.0 - 0.4 X10*3/uL [facility] Basophils Absolute Auto 0.1 0.0 - 0.2 X10*3/uL [facility] NRBC Abs Auto 0.000 0.0 - 0.012 X10*3/uL [facility] Blood Venous blood specimen / Unknown 01/15/2025 3:32 PM EST 01/15/2025 3:54 PM EST [facility] LAB BLOOD ORDERABLES Final Resu lt Performing Organization Address [facility]/ZIP Co de Phone Number [facility] [address] [place] [address] [phone] * Hepatitis C Antibody with Reflex to HCV, RNA, Quantitative, Real-Time PCR (06/19/2024 9:15 AM EDT) Hepatitis C Antibody Nonreactive Nonreactive [facility] Comment:Antibodies to HCV no t detected; does not exclude early acuteHCV infection. Blood Venous blood specimen / Unknown 06/19/2024 9:15 AM EDT 06/19/2024 11:13 AM EDT [facility] LAB BLOOD ORDERABLES Final Resu lt Performing Organization Address City/[facility]/ZIP Co de Phone Number [facility] [address] [place] [address] [phone] * Lipid Panel, Standard (06/19/2024 9:15 AM EDT) Triglycerides 80 <150 mg/dL [facility] Comment:Desirable Triglyceri de: less than 150 mg/dLBorderline High Triglyceride 150-199 mg/dLHigh Triglyceride: 200-499 mg/dLVery High Triglyceride: greater than or equal to 5OO mg/dL Cholesterol 136 <200 mg/dL [facility] Comment:Desirable Cholestero l: less than 200 mg/dLBorderline High Cholesterol: 200-239 mg/dLHigh Cholesterol: greater than 239 mg/dL LDL Cholesterol Calculated 73 <100 mg/dL [facility] Comment:Desirable LDL: less than 100 mg/dLNear Optimal/Above Optimal LDL: 110- 129 mg/dLBorderline High LDL: 130-159 mg/dLHigh LDL: 160-189 mg/dLVery High LDL: greater than or equal to 190 mg/dL HDL Cholesterol 47 >40 mg/dL [facility] Comment:Desirable HDL: great er than 40 mg/dL Note: This HDL assay may give artificially low results in patients with liver disease. Blood Venous blood specimen / Unknown 06/19/2024 9:15 AM EDT 06/19/2024 11:13 AM EDT Marjorie Key [employer] LAB BLOOD ORDERABLES Final Resu lt [facility] [address] [place] [address] [phone] from Last 3 Months or Most Recently Relevant to Health Maintenance Insurance [facility] STANDARD [employer] MEDICARE REPLACEMENT Care Teams Testing Projects Administrator Relationship Specialty Start Date End Date Marjorie Key NP [address] [place] [address] PCP - General Family Medicine 06/14/24
--- OUTSIDE RECORDS SUMMARY | 2025-01-15 17:34 | XMS_ITS | Encounter Summary ---
Author Organization [employer] Address [address] [place] [address] [address] [place] [address] Care Team Providers Care Steamship Agent Name Role Phone Marjorie Key NP Primary Care Provider [phone] Reason for Visit * Reason Comments Med Refill Encounter Details Date Type Department Care Team ([facility] st Contact Info) Description 12/21/2024 Refill [facility] [address] [place] [address] Marjorie Key NP [address] [place] [address] Social History Tobacco Use Types Packs/Day Years [...] Description 01/16/2025 2:00 PM EST Medication Management [facility] [address] [place] [address] Juliana Stone, PharmD [address] [place] [address] 03/15/2025 3:00 PM EST Office Visit [facility] [address] [place] [address] Shirin Hodge, OD [address] [place] [address] documented as of this encounter Visit Diagnoses Not on filedocumented in this encounter Additional Health Concerns Assessment Noted Time PHQ-9 Depression Total Score: 10 025 10:03 AM EDT documented as of this encounter Care Teams Steamship Agent Relationship Specialty Start Date End Date Marjorie Key NP [address] [place] [address] PCP - General Family Medicine 06/14/24 documented as of this encounter
--- OUTSIDE RECORDS SUMMARY | 2025-01-15 17:34 | XMS_ITS | Encounter Summary ---
Author Organization [employer] Address [address] [place] [address] [address] [place] [address] Care Team Providers Care Government Relations Analyst Name Role Phone Marjorie Key NP Primary Care Provider [phone] Reason for Referral * Consultation (Routine) - Authorized Specialty Diagnoses / Procedures Referred By Raymon t Referred To Contact Pharmacy Diagnoses Primary hypertension Marjorie Key NP [address] [place] [address] Phone: tel: fax: Referral ID Status Reason Start Date Expiration Date Visits Requested Visits Authorized [id number] Authorized Continuity of Care 12/07/2024 12/07/2025 6 6 Encounter Details Date Type Department Care Team ([facility] st Contact Info) Description 12/07/2024 Orders Only [facility] [address] [place], [place] [phone] Marjorie Key NP [address] [place] [address] Primary hypertension (Primary Dx) Social History Tobacco Use Types Packs/Day Years [...] Description 01/16/2025 2:00 PM EST Medication Management [facility] [address] [place] [address] Juliana Stone, PharmD [address] [place] [address] 03/15/2025 3:00 PM EST Office Visit [facility] [address] [place], [place] [phone] NaveenShirin, OD [address] [place] [address] Scheduled Referrals Name Type Priority Associated Diagnoses Orde r Schedule Referral to Pharmacy [place] Outpatient Referral Routine Primary hypertension Ordered: 12/07/2024 documented as of this encounter Visit Diagnoses Diagnosis Primary hypertension- Primary Unspecified essential hypertension documented in this encounter Additional Health Concerns Assessment Noted Time PHQ-9 Depression Total Score: 10 025 10:03 AM EDT documented as of this encounter Care Teams Government Relations Analyst Relationship Specialty Start Date End Date Marjorie Key NP [address] [place] [address] PCP - General Family Medicine 06/14/24 documented as of this encounter
--- OUTSIDE RECORDS SUMMARY | 2025-01-15 17:34 | XMS_ITS | Encounter Summary ---
Author Organization [employer] Address [address] [place] [address] [address] [place] [address] Care Team Providers Care Manager Imaging Name Role Phone Marjorie Key NP Primary Care Provider [phone] Reason for Visit * Reason Onset Date Comments chart prep 01/12/2025 Encounter Details Date Type Department Care Team (Late st Contact Info) Description 01/12/2025 Telephone [facility] [address] [place] [address] Arsh Rowley MA chart prep Social History Tobacco Use Types Packs/Day Years [...] with others, in a hotel, in a intermediate, living outside on the street, on a [...] encounter Miscellaneous Notes * Telephone Encounter - Arsh Rowley MA - 01/12/2025 2:41 PM EST Chart Prep Labs: done Images: not applicable Referrals: appointment pending Wed01/16/25 2:00 PM [facility] Medicine Juliana Stone PharmD Medication Management Scheduled Wed12/26/24 1:00 PM [facility] Medicine Juliana Stone PharmD Medication Management [facility] office spoke with patient on 12/07/2024 pt stated he will call back to schedule. 12/14/2024: After several calls patient has not called back to schedule Margarita 03/15/25 3:00 PM [facility] Shirin Hodge, FAB Notes in chart 10/25/24 1:00 PM Ton Franco MD Gastro Wed01/02/25 3:30 PM 04/17/25 3:00 PM Vaccines due: Covid, Hep B, and Zoster Screenings: colonoscopy Overdue care gaps: Tobacco documented in this encounter Plan of Treatment Upcoming Encounters Date Type Department Care Team (Late st Contact Info) Description 01/16/2025 2:00 PM EST Medication Management [facility] [address] [place] [address] Juliana Stone, PharmD [address] [place] [address] 03/15/2025 3:00 PM EST Office Visit [facility] OPTOMETRY [address] [place] [address] Shirin Hodge, OD [address] [place] [address] documented as of this encounter Visit Diagnoses Not on filedocumented in this encounter Additional Health Concerns Assessment Noted Time PHQ-9 Depression Total Score: 10 025 10:03 AM EDT documented as of this encounter Care Teams Manager Imaging Relationship Specialty Start Date End Date Marjorie Key NP [address] [place] [address] PCP - General Family Medicine 06/14/24 documented as of this encounter
--- OUTSIDE RECORDS SUMMARY | 2025-01-15 17:34 | XMS_ITS | Encounter Summary ---
Author Organization [employer] Address [address] [facility] [address] [place] [address] Care Team Providers Care Abrasive Worker Name Role Phone Marjorie Key NP Primary Care Provider [phone] Encounter Details Date Type Department Care Team (Latest Contact Info) Description 01/15/2025 Travel Social History Tobacco Use Types Packs/Day [...] with others, in a hotel, in a skilled nursing, living outside on the street, on a [...] Description 01/16/2025 2:00 PM EST Medication Management [facility] [address] [place] [address] Juliana Stone, PharmD [address] [place] [address] 03/15/2025 3:00 PM EST Office Visit [facility] [address] [place] [address] Naveen, Shirin, OD [address] [place] [address] documented as of this encounter Visit Diagnoses Not on filedocumented in this encounter Additional Health Concerns Assessment Noted Time PHQ-9 Depression Total Score: 10 025 10:03 AM EDT documented as of this encounter Care Teams Abrasive Worker Relationship Specialty Start Date End Date Marjorie Key NP [address] [place] [address] PCP - General Family Medicine 06/14/24 documented as of this encounter
--- OUTSIDE RECORDS SUMMARY | 2025-01-15 17:34 | XMS_ITS | Encounter Summary ---
Author Organization [employer] Address [address] [facility] 7[address] [place] [address] Care Team Providers Care Tent Finisher Name Role Phone Marjorie Key NP Primary Care Provider [phone] Encounter Details Date Type Department Care Team ([facility] st Contact Info) Description 08/11/2024 Orders Only [facility] MEDICINE [address] [place], [place] [phone] Marjorie Key NP 230 [place] [address] Social History Tobacco Use Types Packs/Day Years [...] Description 01/16/2025 2:00 PM EST Medication Management [facility] MEDICINE [address] [place] [address] Juliana Stone, PharmD 230 [place] [address] 03/15/2025 3:00 PM EST Office Visit [facility] OPTOMETRY [address] [place] [address] Shirin Hodge, OD [address] [place] [address] documented as of this encounter Visit Diagnoses Not on filedocumented in this encounter Additional Health Concerns Assessment Noted Time PHQ-9 Depression Total Score: 10 025 3:02 PM EDT documented as of this encounter Care Teams Tent Finisher Relationship Specialty Start Date End Date Marjorie Key NP [address] [place] [address] PCP - General Family Medicine 06/14/24 documented as of this encounter
[2025-01-15 17:44] LABS: Magnesium 2.2 mg/dL (1.6-2.6)
[2025-01-15 18:00] LABS: Prostate Specific Antigen 5.83 ng/mL (<0.05-4.0)
[2025-01-15 18:17] LABS: Folate 16.5 ng/mL (> or = 4.0); Vitamin B12 1024 pg/mL (200-900)
== END 2025-01-15 15:30 | disposition home or self-care (01) ==
LOC: HO.HHCL 15:29
PROVIDERS: PCP Nurse Practitioner; Referring Provider Urology; Visit Provider Nurse Practitioner
DX: Z12.5 Encounter for screening for malignant neoplasm of prostate (principal); C61 Malignant neoplasm of prostate; R41.3 Other amnesia; R25.2 Cramp and spasm; Z19.1 Hormone sensitive malignancy status
CPT/HCPCS: 36415; 82607; 82746; 83735; 84153; 84443; 85025

== ENCOUNTER 2025-01-26 14:12 | Outpatient (AMB) | payer MEDICARE, SELFPAY ==
--- NOTE | 2025-01-26 14:14 | A.OFFVIS_ITS ---
Intake Visit Reasons: 3M PSA follow up Intake Note: Patient Is Present for PSA Urology Med: Tamsulosin Antibiotic Allergy: None Blood Thinner: Aspirin PVR:0ML Allergies No Known Allergies Allergy (Verified 11/27/24 10:15) HPI Comments Details: Coy is a Grenadian-speaking male. He is a patient of [facility] Dr. Key. He is seen for the following urologic conditions - prostate cancer Grenadian translation provided by qualified medical examiner He has medical documents from [facility] Had low volume, low risk disease in [place] Offered targeted cryotherapy Deferred therapy and had two GnRH injections We will start finasteride Six-month follow-up Obtain prostate MRI Prostate cancer Per the patient he was diagnosed with prostate cancer in [place] 2020 Therapy was injections Sounds consistent with GnRH administration Patient informed he should get copy of previous urology records from [place]. It does not matter if they are in Grenadian. This would provide continuity of care. PSA 10/30 4.8 13%, 01/30 5.8 PFSH Medical History (Updated 01/18/25 @ 11:40 by Jovita Jesus Itzel) Stroke Sleep disturbance History of prostate cancer HTN (hypertension) High cholesterol Glaucoma Fractured toe Depression Colon polyps Cataracts, bilateral BPH (benign prostatic hyperplasia) Asthma Arthritis Anxiety Surgical History (Updated 11/27/24 @ 10:19 by Charmaine Strong) Hx of cystoscopy Hx of colonoscopy Family History (Updated 11/27/24 @ 10:18 by Charmaine Strong) Father Cancer Sister Cancer Social History (Updated 11/27/24 @ 10:20 by Charmaine Strong) Household Members: Family Alcohol intake: never Patient Tobacco Use Status: Never used Tobacco Review of Systems Const Denies chills and Denies fever(s) Card Reports no additional complaints and Denies syncope Resp Denies cough GI Denies abdominal pain and Denies heartburn Reports as per HPI and Denies change in libido Neuro Denies syncope Psych Denies change in libido Endo Denies change in libido Physical Exam Const General: cooperative, healthy appearing, comfortable and no acute distress Orientation/consciousness: patient oriented x3 HEENT Face and sinus: Yes normal facial exam Mouth: moist mucous membranes Neck Neck: Yes normal visual inspection, Yes full ROM and Yes trachea midline Chest Chest palpation & inspection: normal inspection of the chest Resp Effort & Inspection: normal respiratory effort, able to speak in complete sentences and no respiratory distress GI Inspection: Yes normal to inspection Back/Spine/Pelvis Cervical Spine: normal cervical lordosis Thoracic/Lumbar Spine: thoracic and lumbar spine normal to inspection Skin General skin exam: no rashes or lesions noted Neuro General: patient oriented x3, gait normal, tone normal and moves all extremities Extrem General: Yes normal to inspection and Yes capillary refill normal Office Procedures Post Void Residual Post Residual Void Post Void Residual (PVR): 0 01323-Ixhv Void Residual by ultrasound Assessment & Plan Assessment & Plan (1) Hormone sensitive prostate cancer: Code(s): C61 - Malignant neoplasm of prostate; Z19.1 - Hormone sensitive malignancy status Category: Medical Plan Six-month follow-up Prostate MRI and PSA Orders: Orders AMB Post Void Residual by ultrasound Today N40.0 - Benign prostatic hyperplasia without lower urinary tract symptoms Prostate Specific Antigen 6 Months C61 - Malignant neoplasm of prostate, Z19.1 - Hormone sensitive malignancy status MR Prostate wo/w con 6 Months C61 - Malignant neoplasm of prostate, Z19.1 - Hormone sensitive malignancy status Patient Instructions: This note is constructed using voice recognition software. While every effort has been made to ensure accuracy tinsmith apprentice errors may have been included. Imaging studies, laboratory and physical exam results were discussed and reviewed in detail. No major barriers to patient understanding were identified. An opportunity to ask questions regarding the treatment plan was provided. All questions were answered. The patient expressed understanding and agreement with the above treatment plan. The patient is aware they should contact our office by phone for worsening of their current condition or the appearance of new urologic symptoms. Compliance is encouraged with any medications and followup testing that is ordered. It is a privilege to participate in the urologic care of your patient. If you have any questions or concerns regarding treatment for the above conditions, or other urologic issues, please do not hesitate to contact me. The office telephone contact is [phone]. Sincerely, Dr Ton Franco MD, [facility] - Urology Compassionate Specialist Care for the Genitourinary System Coding Level of Care Code Est Pt Level 4 (75012) Diagnoses Hormone sensitive prostate cancer C61; Z19.1 CPT Codes Post Residual Void - PVR CPT Code: 03047-Gnzo Void Residual by ultrasound ([id number])
--- OUTSIDE RECORDS SUMMARY | 2025-01-26 14:33 | XMS_ITS | Encounter Summary ---
Author Organization [employer] Address [address] [place] [address] [address] [place] [address] Care Team Providers Care Government Affairs Manager Name Role Phone Marjorie Key NP Primary Care Provider [phone] Reason for Visit * Reason Comments Med Refill Encounter Details Date Type Department Care Team ([facility] st Contact Info) Description 01/20/2025 Refill [facility] MEDICINE [address] [place] [address] Marjorie Key NP [address] [place] [address] Social History Tobacco Use Types Packs/Day Years [...] with others, in a hotel, in a mcfp, living outside on the street, on a [...] Description 03/15/2025 3:00 PM EST Office Visit [facility] OPTOMETRY [address] [place] [address] Shirin Hodge, OD [address] [place] [address] 04/18/2025 3:15 PM EST Office Visit [facility] MEDICINE [address] [place] [address] Marjorie Key NP [address] [place] [address] documented as of this encounter Visit Diagnoses Not on filedocumented in this encounter Additional Health Concerns Assessment Noted Time PHQ-9 Depression Total Score: 10 025 10:03 AM EDT documented as of this encounter Care Teams Government Affairs Manager Relationship Specialty Start Date End Date Marjorie Key NP [address] [place] [address] PCP - General Family Medicine 06/14/24 documented as of this encounter
--- OUTSIDE RECORDS SUMMARY | 2025-01-26 14:33 | XMS_ITS | Encounter Summary ---
Author Organization [employer] Address [address] [place] [address] [address], [place] [address] Care Team Providers Care Search Engine Optimization Specialist Name Role Phone Marjorie Key NP Primary Care Provider [phone] Reason for Visit * Reason Onset Date Comments April recall 01/25/2025 Encounter Details Date Type Department Care Team ([facility] st Contact Info) Description 01/25/2025 Telephone [facility] MEDICINE 230 [place] [address] Marjorie Key NP [address] [place] [address] April recall Social History Tobacco Use Types Packs/Day Years [...] encounter Miscellaneous Notes * Telephone Encounter - Pierce Zhu MA - 01/25/2025 11:23 AM EST Telephone call to patient to schedule the following recall: April Visit type: Follow up Appointment notes: Chronic conditions Follow up in about 3 months (around 04/17/2025) for chronic disease management . Patient agree to appointment on 04/18/2025 at 3:15 PM with Appra. Reminder will be sent. documented in this encounter Plan of Treatment Upcoming Encounters Date Type Department Care Team ([facility] st Contact Info) Description 03/15/2025 3:00 PM EST Office Visit [facility] OPTOMETRY [address] [place] [id number] Shirin Hodge, OD [address] [place] [address] 04/18/2025 3:15 PM EST Office Visit [facility] MEDICINE [address] [place] [address] Marjorie Key NP [address] [place], [place] [phone] documented as of this encounter Visit Diagnoses Not on filedocumented in this encounter Additional Health Concerns Assessment Noted Time PHQ-9 Depression Total Score: 10 025 10:03 AM EDT documented as of this encounter Care Teams Search Engine Optimization Specialist Relationship Specialty Start Date End Date Marjorie Key NP [address] [place] [address] PCP - General Family Medicine 06/14/24 documented as of this encounter
--- OUTSIDE RECORDS SUMMARY | 2025-01-26 14:34 | XMS_ITS | Encounter Summary ---
Author Organization [employer] Address [address] [place] [address] [address] [place] [address] Care Team Providers Care Power Nut Runner Operator Name Role Phone Marjorie Key NP Primary Care Provider [phone] Reason for Referral * Consultation (Routine) - Authorized Specialty Diagnoses / Procedures Referred By Raymon t Referred To Contact Pharmacy Diagnoses Primary hypertension Marjorie Key NP [address] [place] [address] Phone: tel: fax: Referral ID Status Reason Start Date Expiration Date Visits Requested Visits Authorized [id number] Authorized Continuity of Care 12/07/2024 12/07/2025 6 6 Encounter Details Date Type Department Care Team ([facility] st Contact Info) Description 12/07/2024 Orders Only [facility] MEDICINE [address] [place], [place] [phone] Marjorie Key NP [address] [place] [address] Primary hypertension (Primary Dx) Social History Tobacco [...] Description 03/15/2025 3:00 PM EST Office Visit [facility] OPTOMETRY [address] [place] [address] Shirin Hodge, OD [address] [place] [address] 04/18/2025 3:15 PM EST Office Visit [facility] MEDICINE [address] [place] [address] Marjorie Key NP [address] [place] [address] Scheduled Referrals Name Type Priority Associated Diagnoses Orde r Schedule Referral to Pharmacy MT Outpatient Referral Routine Primary hypertension Ordered: 12/07/2024 documented as of this encounter Visit Diagnoses Diagnosis Primary hypertension- Primary Unspecified essential hypertension documented in this encounter Additional Health Concerns Assessment Noted Time PHQ-9 Depression Total Score: 10 025 10:03 AM EDT documented as of this encounter Care Teams Power Nut Runner Operator Relationship Specialty Start Date End Date Marjorie Key NP [address] [place] [address] PCP - General Family Medicine 06/14/24 documented as of this encounter
--- OUTSIDE RECORDS SUMMARY | 2025-01-26 14:34 | XMS_ITS | Encounter Summary ---
Author Organization [employer] Address [address] [place] [address] [address] [place] [address] Care Team Providers Care Panel Instrument Repairer Name Role Phone Marjorie Key NP Primary Care Provider [phone] Reason for Visit * Reason Comments Med Refill Encounter Details Date Type Department Care Team ([facility] st Contact Info) Description 12/21/2024 Refill [facility] MEDICINE [address] [place] [address] Marjorie Key NP [address] [place] [address] Social History Tobacco Use Types Packs/Day Years [...] with others, in a hotel, in a half-way, living outside on the street, on a [...] Description 03/15/2025 3:00 PM EST Office Visit [facility] OPTOMETRY [address] [place] [address] Shirin Hodge, OD [address] [place] [address] 04/18/2025 3:15 PM EST Office Visit [facility] MEDICINE [address] [place] [address] Marjorie Key NP [address] [place] [address] documented as of this encounter Visit Diagnoses Not on filedocumented in this encounter Additional Health Concerns Assessment Noted Time PHQ-9 Depression Total Score: 10 025 10:03 AM EDT documented as of this encounter Care Teams Panel Instrument Repairer Relationship Specialty Start Date End Date Marjorie Key NP [address] [place] [address] PCP - General Family Medicine 06/14/24 documented as of this encounter
--- OUTSIDE RECORDS SUMMARY | 2025-01-26 14:34 | XMS_ITS | Encounter Summary ---
Author Organization [employer] Address [address] [place] [address] [address] [place] [address] Care Team Providers Care Account Resolution Specialist Name Role Phone Marjorie Key NP Primary Care Provider [phone] Encounter Details Date Type Department Care Team ([facility] st Contact Info) Description 2025 Results Follow-Up [facility] [address] [place] [address] Marjorie Key NP [address] [place] [address] Vitamin B12/Folate, Serum Panel, TSH W/Reflex to FT4, CBC auto differential, Magnesium Social History Tobacco Use Types Packs/Day Years [...] with others, in a hotel, in a usp, living outside on the street, on a [...] encounter Miscellaneous Notes * Telephone Encounter - Vy Alejandra RN - 01/24/2025 4:39 PM EST ----- Message from Jeevan Barker sent at 01/24/2025 9:32 AM EST ----- * Telephone Encounter - Vy Alejandra RN - 01/24/2025 9:37 AM EST Tc to pt to let them know per PCP Please inform patient of lab results which reveals elevated vitamin B12 levels, and mild anemia. Assess use of B12 supplements, and alcohol consumption and advise he discontinue if applicable. The recommendation is to repeat B12 lab in 2 weeks to assess for persistent elevation. I have placed the order. Follow-up pending repeat result. Thanks . Pt reports that they have recently transferred their pharmacy to [facility] for med box but no one has called them yet. Pt advised that fiction writer will call pt back with updates and pt verbalized understanding. Tc to pharmacy, discussed with med box who reported they received all the transfer but wants pt to bring in any vi als of medications they have at home to avoid duplicates. Tc to pt via [employer] ID: Sahra [id number] to letthem know, no answer, lvm to return call and ask to speak to blue team nurses. * Telephone Encounter - Vy Alejandra RN - 01/24/2025 9:36 AM EST ----- Message from Jeevan Barker sent at 01/24/2025 9:32 AM EST ----- * Telephone Encounter - Jeeavn Barker - 01/24/2025 9:31 AM EST Tc from pt returning call back regarding prior message. Contact pt at [phone] * Telephone Encounter - Lizeth Tineo RN - 01/22/2025 4:00 PM EST ----- Message from Marjorie Key sent at 2025 5:21 PM EST ----- Please inform patient of lab results which reveals elevated vitamin B12 levels, and mild anemia. Assess use of B12 supplements, and alcohol consumption and advise he discontinue if applicable. The recommendation is to repeat B12 lab in 2 weeks to assess for persistent elevation. I have placed the order. Follow-up pending repeat result. Thanks ----- Message ----- From: Interface, Lab Results In Sent: 01/15/2025 4:10 PM EST To: Marjorie Key NP T/C to pt via BLS Rn Admission [place] #[id number] to advise of message from PCP re: lab results and recommendation. No answer, v/m left to return call to Blue team nurses. documented in this encounter Plan of Treatment Upcoming Encounters Date Type Department Care Team (Late st Contact Info) Description 03/15/2025 3:00 PM EST Office Visit [facility] OPTOMETRY [address] [place] [address] Naveen, Shirin, OD [address] [place] [address] 04/18/2025 3:15 PM EST Office Visit [facility] MEDICINE [address] [place] [address] Marjorie Key NP [address] [place] [address] Scheduled Orders Name Type Priority Associated Diagnoses Orde r Schedule Vitamin B12 (Cobalamin) and Folate Panel, Serum Lab Routine Elevated vitamin B12 level Expected: 02/02/2025 (Approximate), Expires: 2026 Iron And Total Iron Binding Capacity Lab Routine Anemia, unspecified type Expected: 02/02/2025, Expires: 2026 documented as of this encounter Visit Diagnoses Diagnosis Elevated vitamin B12 level- Primary Anemia, unspecified type documented in this encounter Additional Health Concerns Assessment Noted Time PHQ-9 Depression Total Score: 10 025 10:03 AM EDT documented as of this encounter Care Teams Account Resolution Specialist Relationship Specialty Start Date End Date Marjorie Key NP [address] [place] [address] PCP - General Family Medicine 06/14/24 documented as of this encounter
--- OUTSIDE RECORDS SUMMARY | 2025-01-26 14:34 | XMS_ITS | Encounter Summary ---
Author Organization [employer] Address [address] [facility] [address] [place] [address] Care Team Providers Care Hearing Instrument Specialist Name Role Phone Marjorie Key NP Primary Care Provider [phone] Encounter Details Date Type Department Care Team ([facility] st Contact Info) Description 2025 Results Follow-Up [facility] [address] [place] [address] Marjorie Key NP [address] [place] [address] PSA,Total Social History Tobacco Use Types Packs/Day Years [...] 3:00 PM EST Office Visit [facility] OPTOMETRY [address] [place] [address] Shirin Hodge, OD [address] [place] [address] 04/18/2025 3:15 PM EST Office Visit [facility] MEDICINE [address] [place] [address] Marjorie Key NP [address] [place] [address] documented as of this encounter Visit Diagnoses Not on filedocumented in this encounter Additional Health Concerns Assessment Noted Time PHQ-9 Depression Total Score: 10 025 10:03 AM EDT documented as of this encounter Care Teams Hearing Instrument Specialist Relationship Specialty Start Date End Date Marjorie Key NP [address] [place] [address] PCP - General Family Medicine 06/14/24 documented as of this encounter
--- OUTSIDE RECORDS SUMMARY | 2025-01-26 14:34 | XMS_ITS | Clinical Summary ---
Author Organization [employer] Address [address] [place] [address] 7 [place] [address] Care Team Providers Care Emergency Dispatch Operator Name Role Phone Marjorie Key NP Primary Care Provider [phone] Allergies No known active allergies Medications * [...] 90 tablet 1 09/23/19 25 026 Active fluticasone-sa lmeterol (Advair) 115-21 MCG/ACT inhaler [...] 50 mg 30 tablet 2 12/07/19 25 Active tamsulosin (Flomax) 0.4 MG 24 hr capsuleIndicat ions:History of BPH Take 1 capsule (0.4 mg) by mouth Once per day. 90 capsule 1 12/07/19 25 026 Active fluticasone (Flonase) 50 MCG/ACT nasal sprayIndicatio ns:Post-nasal drip Administer 1 spray into each nostril Once per day. Shake gently. Before first use, prime pump. After use, clean tip and replace cap. 16 g 2 12/07/19 Active traZODone (Desyrel) 50 MG tablet Take 1 tablet (50 mg) by mouth at bedtime. 30 tablet 1 01/16/20 25 Active gabapentin (Neurontin) 400 MG capsule Take 1 capsule (400 mg) by mouth 2 times daily. 60 capsule 1 01/16/20 25 Active montelukast (Singulair) 10 MG tablet TAKE 1 TABLET (10 MG) BY MOUTH ONCE PER DAY. 90 tablet 01/20/20 25 Active traZODone (Desyrel) 50 MG tablet TAKE 1 TABLET BY MOUTH AT BEDTIME 30 tablet 1 09/05/19 25 025 Discontinued(Re order (will not trigger notification to Pharmacy)) montelukast (Singulair) 10 MG tablet TAKE 1 TABLET (10 MG) BY MOUTH ONCE PER DAY. 90 tablet 10/24/19 25 025 Discontinued(Re order (will not trigger notification to Pharmacy)) gabapentin (Neurontin) 400 MG capsule Take 1 [...] organization. Date Type Department Care Team Description 01/25/2025 Telephone [facility] [address] [place] [phone] Marjorie Key NP April01/20/2025 Refill [facility] [address] [place] [phone] Marjorie Key NP 2025 Results Follow-Up [facility] [address] [place] [phone] Marjorie Key NP Vitamin B12/Folate, Serum Panel, TSH W/Reflex to FT4, CBC auto differential, Magnesium 2025 Results Follow-Up [facility] [address] [place] [phone] Marjorie Key NP PSA,Total 2025 Refill [facility] [address] [place] [address] Marjorie Key NP 01/16/2025 Travel 01/15/2025 2:30 PM EST Office Visit [facility] [place] [address] Marjorie Key NP Memory loss, short term (Primary Dx); Sleep disturbance; Muscle cramping 01/15/2025 Orders Only GENERIC EXTERNAL DATA DEPARTMENT Provider, Generic External Data 01/15/2025 Travel 01/12/[address] [place] [address] Arsh Rowley MA chart prep 12/28/2024 2:00 PM EDT Clinical Support [address] [place] [address] Vy Alejandra RN Forgetfulness 12/28/2024 Travel 12/21/[address] [place] [address] Marjorie Key NP 12/07/2024 Orders Only [address] [place] [address] Marjorie Key NP Primary hypertension (Primary Dx) 12/07/[address] [place] [address] Marjorie Key NP 12/07/[address] [place] [address] Vy Alejandra RN 12/06/2024 10:00 AM EDT Office Visit [address] [place] [address] Marjorie Key NP Physical exam, annual (Primary Dx); Depression, unspecified depression type; Encounter for immunization; Forgetfulness; Anxiety; Post-nasal drip; History of BPH 12/06/[address] [place] [address] Marjorie Key NP Fax over notes 12/06/2024 Travel 11/29/2024 Patient Outreach [facility] [address] [place] [address] Marjorie Key NP Pre-visit Planning (SDOH was already completed ) 11/21/2024 Refill [facility] [address] [place] [address] Marjorie Key NP 11/07/2024 Telephone [facility] [address] [place] [address] Marjorie Key NP Appointment Request from Last 3 Months Immunizations Immunization Administration [...] Sign Reading Time Taken Comments Blood Pressure 100/70 01/16/2025 2:26 PM EST Pulse 67 01/16/2025 2:18 PM EST Temperature 36.7 C (98.1 F) [...] Description 03/15/2025 3:00 PM EST Office Visit [facility] [address] [place], [place] [address] Shirin Hodge, FAB [address] [place] [address] 04/18/2025 3:15 PM EST Office Visit [facility] [address] [place] [address] Marjorie Key NP [address] [place] [address] Health Maintenance Due Date Last Done Comments CT Colonography 1955 Colonoscopy 1955 Colorectal Cancer Screening 1955 FIT DNA/Cologuard 1955 FIT 1955 FOBT 1955 Sigmoidoscopy 1955 Zoster Vaccines (1 of 2) 2005 COVID-19 Vaccine (1 - 2024-2 6 season) 2024 Hepatitis B Vaccines (3 of [...] Procedure Name Priority Date/Time Associated Diagnosis Comments PSA, TOTAL Routine 01/15/2025 3:32 PM EST MAGNESIUM Routine 01/15/2025 3:32 PM EST Muscle cramping CBC WITH AUTO DIFFERENTIAL Routine 01/15/2025 3:32 PM EST Memory loss, short term TSH W/REFLEX TO FT4 Routine 01/15/2025 3 :32 PM EST Memory loss, short term VITAMIN B12/FOLATE, SERUM PANEL Routine 01/15/2025 3:32 PM EST Memory loss, short term HEPATITIS C AB W/REFL TO HCV RNA, QN, PCR Routine 06/19/2024 9:15 AM EDT Encounter for health-related screening LIPID PANEL, STANDARD Routine 06/19/2024 9:15 AM EDT Overweight (BMI 25.0-29.9) from Last 3 Months or Most Recently Relevant to Health Maintenance Results * (ABNORMAL) Vitamin B12/Folate, Serum Panel (01/15/2025 3:32 PM EST) Vitamin B12 1,024(H) 200 - 900 pg/mL [facility] Comment:NORMAL 200-900 PG/ML INDETERMINATE 160-199 PG/ML DEFICIENT < 160 PG/ML Folate 16.5 > or = 4.0 ng/mL [facility] Comment:Reference Values:> o r = 4.0 ng/mL< 4.0 ng/mL suggests folate deficiency Methotrexate, aminopterin and folinic acid(leucovorin) are chemotherapeutic agents whose molecularstructures are similar to folate; therefore, the Architectfolate assay cannot be used for patients using these drugs. Blood Venous blood specimen / Unknown 01/15/2025 3:32 PM EST 01/15/2025 3:54 PM EST us Marjorie Key NP LAB BLOOD ORDERABLES Final Resu lt [facility] [address] [place] [phone] * TSH W/Reflex to FT4 (01/15/2025 3:32 PM EST) Pathologist [facility] TSH reflex Free T4 0.97 0.32 - 4.0 uIU/mL [facility] Blood Venous blood specimen / Unknown 01/15/2025 3:32 PM EST 01/15/2025 3:54 PM EST Marjorie Clemente RESIDENT INTERN LAB BLOOD ORDERABLES Final Resu lt [facility] [address] [place] [address] [phone] * (ABNORMAL) CBC auto differential (01/15/2025 3:32 PM EST) Pathologist [facility] White Blood Count 8.7 4.8 - 10.8 X10*3/uL [facility] Red Blood Count 4.33(L) 4.60 - 5.80 X10*6/uL [facility] Hemoglobin 13.3(L) 14.0 - 18.0 g/dl [facility] Hematocrit 39.1(L) 42.0 - 52.0 % [facility] Mean Corpuscular Volume 90.3 80.0 - 98.0 fL [facility] Mean Corpuscular Hemoglobin 30.7 27.0 - 33.0 pg [facility] Mean Corpuscular HGB Conc 34.0 31.0 - 36.0 g/dl [facility] Red Cell Distribution Width 14.6 11.0 - 16.0 % [facility] Platelet Count 243 160 - 400 X10*3/uL [facility] Mean Platelet Volume 10.2 9.4 - 12.4 fL [facility] Neutrophils Percent Auto 59.5 45 - 73 % [facility] Imm Gran Pct Auto 0.3 0.0 - 0.4 % [facility] Lymphocytes Percent Auto 27.6 20 - 40 % [facility] Monocytes Percent Auto 9.2 2 - 11 % [facility] Eosinophils Percent Auto 2.6 0 - 4 % [facility] Basophils Percent Auto 0.8 0 - 2 % [facility] NRBC Pct Auto 0.0 0.0 - 0.2 /100WBC [facility] Neutrophils Absolute Auto 5.2 2.0 - 8.3 x10*3/uL [facility] Imm Gran Abs Auto 0.03 0.00 - 0.03 X10*3/uL [facility] Lymphocytes Absolute Auto 2.4 1.2 - 4.9 X10*3/uL [facility] Monocytes Absolute Auto 0.8 0.1 - 1.2 X10*3/uL [facility] Eosinophils Absolute Auto 0.2 0.0 - 0.4 X10*3/uL [facility] Basophils Absolute Auto 0.1 0.0 - 0.2 X10*3/uL [facility] NRBC Abs Auto 0.000 0.0 - 0.012 X10*3/uL [facility] Blood Venous blood specimen / Unknown 01/15/2025 3:32 PM EST 01/15/2025 3:54 PM EST us Marjorie Key RESIDENT INTERN LAB BLOOD ORDERABLES Final Resu lt Performing Organization Address City/[facility]/ZIP Co de Phone Number [facility] [address] [place] [phone] * (ABNORMAL) PSA,Total (01/15/2025 3:32 PM EST) Prostate Specific Antigen 5.83(H) <0.05 - 4.0 ng/mL [facility] Comment:PSA methodology: Abb oscar Aliajayty i ChemiluminescentMicroparticle Immunoassay (CMIA) 01/15/2025 3:32 PM EST 01/15/2025 3:54 PM EST us Generic External Data Provider LAB BLOOD ORDERAB LES Final Result Performing Organization Address City/[facility]/ZIP Co de Phone Number [facility] [address] [place] [address] [place] [phone] * Magnesium (01/15/2025 3:32 PM EST) [facility] Magnesium 2.2 1.6 - 2.6 mg/dL [facility] Blood Venous blood specimen / Unknown 01/15/2025 3:32 PM EST 01/15/2025 3:54 PM EST [facility] RESIDENT INTERN LAB BLOOD ORDERABLES Final Resu lt Performing Organization Address [facility]/ZIP Co de Phone Number [facility] [address] [place] [phone] * Hepatitis C Antibody with Reflex to HCV, RNA, Quantitative, Real-Time PCR (06/19/2024 9:15 AM EDT) [facility] Hepatitis C Antibody Nonreactive Nonreactive [facility] Comment:Antibodies to HCV no t detected; does not exclude early acuteHCV infection. Blood Venous blood specimen / Unknown 06/19/2024 9:15 AM EDT 06/19/2024 11:13 AM EDT [facility] RESIDENT INTERN LAB BLOOD ORDERABLES Final Resu lt Performing Organization Address [facility]/ZIP Co de Phone Number [facility] [address] [place] [phone] * Lipid Panel, Standard (06/19/2024 9:15 AM EDT) [facility] Triglycerides 80 <150 mg/dL [facility] Comment:Desirable Triglyceri de: less than 150 mg/dLBorderline High Triglyceride 150-199 mg/dLHigh Triglyceride: 200-499 mg/dLVery High Triglyceride: greater than or equal to 5OO mg/dL Cholesterol 136 <200 mg/dL [facility] Comment:Desirable Cholestero l: less than 200 mg/dLBorderline High Cholesterol: 200-239 mg/dLHigh Cholesterol: greater than 239 mg/dL LDL Cholesterol Calculated 73 <100 mg/dL [facility] Comment:Desirable LDL: less than 100 mg/dLNear Optimal/Above Optimal LDL: 110- 129 mg/dLBorderline High LDL: 130-159 mg/dLHigh LDL: 160-189 mg/dLVery High LDL: greater than or equal to 190 mg/dL HDL Cholesterol 47 >40 mg/dL [facility] Comment:Desirable HDL: great er than 40 mg/dL Note: This HDL assay may give artificially low results in patients with liver disease. Blood Venous blood specimen / Unknown 06/19/2024 9:15 AM EDT 06/19/2024 11:13 AM EDT us Marjorie Key RESIDENT INTERN LAB BLOOD ORDERABLES Final Resu lt [facility] [address] [place] [address] [phone] from Last 3 Months or Most Recently Relevant to Health Maintenance Insurance [facility] STANDARD [employer] MEDICARE REPLACEMENT Care Teams Emergency Dispatch Operator Relationship Specialty Start Date End Date Marjorie Key NP [address] [place] [phone] PCP - General Family Medicine 06/14/24
--- OUTSIDE RECORDS SUMMARY | 2025-01-26 14:34 | XMS_ITS | Encounter Summary ---
Author Organization [employer] Address [address] [facility] [address] [place] [address] Care Team Providers Care Certified Medical Asst Name Role Phone Marjorie Key NP Primary Care Provider [phone] Encounter Details Date Type Department Care Team ([facility] st Contact Info) Description 08/11/2024 Orders Only [facility] [address] [place], [place] [phone] Marjorie Key NP [address] [place] [address] Social History Tobacco Use Types Packs/Day Years [...] with others, in a hotel, in a long term, living outside on the street, on a [...] Description 03/15/2025 3:00 PM EST Office Visit [facility] [address] [place] [address] Shirin Hodge, OD [address] [place] [address] 04/18/2025 3:15 PM EST Office Visit [facility] [address] [place] [address] Marjorie Key NP [address] [place] [address] documented as of this encounter Visit Diagnoses Not on filedocumented in this encounter Additional Health Concerns Assessment Noted Time PHQ-9 Depression Total Score: 10 025 3:02 PM EDT documented as of this encounter Care Teams Certified Medical Asst Relationship Specialty Start Date End Date Marjorie Key NP [address] [place] [address] PCP - General Family Medicine 06/14/24 documented as of this encounter
== END 2025-01-26 14:52 | disposition home or self-care (01) ==
LOC: HO.HUSH 14:13
PROVIDERS: PCP Nurse Practitioner; Visit Provider Urology
DX: C61 Malignant neoplasm of prostate (principal); Z19.1 Hormone sensitive malignancy status
CPT/HCPCS: 99214

== ENCOUNTER → 2025-01-26 14:12 | Outpatient (BNVA) | payer MEDICARE, SELFPAY | PROVIDERS: PCP Nurse Practitioner; Visit Provider Urology | DX: C61 Malignant neoplasm of prostate (principal); Z19.1 Hormone sensitive malignancy status; Z92.21 Personal history of antineoplastic chemotherapy | CPT/HCPCS: 51798; 99212 ==